=== PATIENT | female | born 1950 | race Caucasian/White ===

== ENCOUNTER 2018-07-13 05:56 | Day surgery (SDC) | payer MEDICARE, OTHER ==
[2018-07-13] MEDS ORDERED: LIDOCAINE 2% (SDV) 5 ML INJ (07:41)
[2018-07-13] MEDS ORDERED: PROPOFOL 40 ML (07:41)
[2018-07-13] MEDS ORDERED: ONDANSETRON 4 MG INJ IV (08:00)
[2018-07-13] MEDS ORDERED: PROPOFOL 20 ML (08:38)
== END 2018-07-13 14:39 | disposition home or self-care (01) ==
LOC: GIL 05:56
DX: R19.4 Change in bowel habit (principal); K64.8 Other hemorrhoids; K44.9 Diaphragmatic hernia without obstruction or gangrene; K21.9 Gastro-esophageal reflux disease without esophagitis; E03.9 Hypothyroidism, unspecified
CPT/HCPCS: 43239; 88305